=== PATIENT | female | born 1965 | race Hispanic/Latino ===

== ENCOUNTER 2020-11-24 22:53 | Emergency (ER) | payer OTHER ==
[2020-11-25] MEDS ORDERED: PREDNISONE 20 MG TABLET ONE (00:52)
[2020-11-25] MEDS ORDERED: ACETAMINOPHEN EXTRA STRENGTH 500 MG TABLET ONE (00:53)
[2020-11-25] MEDS ORDERED: ONDANSETRON ODT 4 MG TAB ONE (00:53)
[2020-11-25] MEDS ORDERED: ACYCLOVIR 200 MG CAPSULE ONE (00:53)
== END 2020-11-25 01:03 | disposition home or self-care (01) ==
LOC: EDH 22:53
DX: B02.9 Zoster without complications (principal); Z88.0 Allergy status to penicillin

== ENCOUNTER 2023-10-06 06:32 | Emergency (ER) | payer OTHER ==
[~2023-10-06] VITALS: Ht 160 cm; Wt 69.9 kg
[2023-10-06 08:10] LABS: SARS-CoV-2, RNA, NAAT NEGATIVE SARS CoV-2 (NEGATIVE)
[2023-10-06 08:19] LABS: INFLUENZA TYPE A Negative For Type A (NEGATIVE); INFLUENZA TYPE B Negative For Type B (NEGATIVE)
[2023-10-06 10:41] VITALS: BP 138/74; PULSE 85; RESP 17; O2SAT 100
[2023-10-06 10:49] LABS: RAPID GROUP A STREP NEGATIVE (NEGATIVE)
== END 2023-10-06 10:58 | disposition left against medical advice (07) ==
LOC: EDH 06:32
DX: R09.81 Nasal congestion (principal); Z20.822 Contact with and (suspected) exposure to COVID-19; Z53.21 Procedure and treatment not carried out due to patient leaving prior to being seen by health care provider
CPT/HCPCS: 36415; 87635; 87804; 87880; 99281